=== PATIENT | female | born 1945 | race Caucasian/White ===

== ENCOUNTER → 2016-04-26 | Day surgery (SDC) | payer MEDICARE ==
[~2016-04-26] MED LIST: BUPIVACAINE HCL PF 0.25% 30 ML VIAL ONE; KETOROLAC TROMETHAMINE 30 MG/ML (IVP) VIAL IV PUSH ONE; LACTATED RINGER'S 1000 ML INJ 1,000 ML ONE; MIDAZOLAM HCL 2 MG/2 ML VIAL ONE; NORC7.5T PO; ONDANSETRON HCL 4 MG/2 ML VIAL IV PUSH ONE; PROPOFOL 100 MG/10 ML INJ IV ONE; XARE10TA PO; ceFAZolin 2 GM PREMIX 50 ML ONE
--- NOTE | 2016-05-03 16:05 | TN ---
cc: LESLEE CAICEDO CASSI DATE OF SURGERY: 04/26/2016 DATE OF : 1945 INDICATION The patient is a 70-year-old female who presented to the clinic complaining of pain to the right second toe with deviation of the second toe toward the great toe that she did not remember any particular injury but had an incident while dancing at [facility] which she thought may have caused the injury to occur. She subsequently had significant pain and increasing swelling to the area. She then came in for evaluation and on x-ray was found to have a dislocation of the second metatarsophalangeal joint that was attempted to be relocated in clinic unsuccessfully secondary to it being approximately one month old prior to her visit. She was then scheduled for surgery for open reduction of the dislocation of the right second metatarsophalangeal joint with capsule and tendons balancing possible pinning of the second toe to maintain reduction. She consented to this procedure. DETAILS OF PROCEDURE She was seen in pre-op holding by myself, nursing staff and Anesthesia, where the correct patient, side and site were all confirmed to be correct in the right foot. She was then taken back to the surgical suite, placed in supine position where attention was directed to the right foot. It was prepped and draped in normal sterile fashion followed by attention directed to the dorsal aspect of the second metatarsophalangeal joint. Care was taken to avoid neurovascular structures and dissection was taken down to the dorsal aspect of the second metatarsophalangeal joint capsule. A capsulotomy was performed to enter into the joint followed by release of soft tissues around the joint and the dislocation was found to be reduced. Following this a pin was placed into the distal aspect of the second digit all the way through the second metatarsophalangeal joint in order to achieve and hold reduction. Following this the lateral capsular structures were repaired via a lateral capsulorrhaphy and a medial capsulotomy. Following this attention was directed to the dorsal aspect of the capsule. The deep tissue was closed followed by skin with 3-0 nylon suture after irrigation was performed. A 0.45 K-wire was used to achieve and hold the fixation. This as all confirmed with C-arm imaging prior to closure. Following this a dressing consisting of Xeroform to the dorsal aspect of the foot, 4x4's, Jovan and Manolo bandage was applied to the right foot. A Jurgan ball was placed at the tip of the pin site. The patient was then taken back to PACU with vital signs stable and vascular status intact to the remainder of the right foot. She tolerated the procedure and anesthesia well without complications and will be weightbearing as tolerated in a CAM boot. SHORT OPERATIVE NOTE SURGEON Leslee Caicedo DISPATCH OFFICER Staff PREOPERATIVE DIAGNOSIS Second metatarsophalangeal joint dislocation, right foot. POSTOPERATIVE DIAGNOSIS Second metatarsophalangeal joint dislocation, right foot. PROCEDURE Open reduction of dislocation right second metatarsophalangeal joint with capsule and tendon balancing and pinning using a 0.45 K-wire. PROGNOSIS Two grams of Ancef IV pre-op. ANESTHESIA General endotracheal plus 10 mL of 0.25% Marcaine plain as a local block. ESTIMATED BLOOD LOSS Minimal. COMPLICATIONS None. TOURNIQUET TIME Right ankle at 250 mmHg for 39 minutes. DISPOSITION Weightbearing as tolerated right foot in CAM boot. Follow-up in clinic in one week for dressing change. Leslee ROA/LOUISE /2:45 PM /4:04 PM
== END | disposition home or self-care (01) ==
LOC: ESDC 06:05
PROVIDERS: ATTEND Podiatrist Foot & Ankle Surgery
DX: S93.124A Dislocation of metatarsophalangeal joint of right lesser toe(s), initial encounter (principal)
CPT/HCPCS: 01462; 28636; 73630; 76000; J0690; J1885; J2250; J2405; J3010; J7120

== ENCOUNTER → 2016-06-14 | Day surgery (SDC) | payer MEDICARE ==
[~2016-06-14] MED LIST changes: -KETOROLAC TROMETHAMINE 30 MG/ML (IVP) VIAL IV PUSH ONE; -PROPOFOL 100 MG/10 ML INJ IV ONE; +PROPOFOL 200 MG/20 ML AMP IV ONE; +oxyCODONE/ACETAMINOPHEN 5 MG/325 MG TAB ONE
--- NOTE | 2016-06-17 17:20 | TN ---
cc: ELDON CAICEDO DP DATE OF 1945 DATE OF SURGERY 06/14/2016 HISTORY: the patient is a 71-year-old female who presented to my clinic after having a dislocation for approximately one month of her second digit of the metatarsophalangeal joint. She was in her postoperative course after having the dislocation reduced, a pin placed through the digit and through the second metatarsophalangeal joint area and the lateral aspect of the capsule that was noted to be torn intraoperatively that was repaired in surgery as well. The patient to admit to taking the boot off while she was and all recovering with the pin and thinks that she may have in her sleep knocked the toe, breaking the toe. It was noted in the clinic upon x-ray that the pin was broken at the level of the metatarsophalangeal joint and the toe had recurrent dislocation at the metatarsophalangeal joint as well and after reviewing the x-rays with the patient and the fact that there was a pin remaining within the joint area. I discussed with her that she needed to have that residual pin removed and a revision procedure performed in order to reduce the dislocation and repair and a soft tissue defect of the maybe in the area as well. I discussed with her that with a recurrent dislocation like this it was likely that she had torn more soft tissue of the lateral aspect possibly the plantar aspect of the joint area including the plantar plate as well as the lateral aspect of the capsule and likely been weak and worn after the repair. I also discussed with her that it would be best to decompress the joint to include a Clare osteotomy with the plantar plate repair of the capsule repair to reduce the right second metatarsophalangeal joint dislocation. I discussed the procedure the risks, benefits and potential complications in great detail with the patient. She consented to move forward surgery. The patient was seen in preop holding by myself, nursing staff and Anesthesia where the correct patient side and site were all confirmed be correct in the right foot. The patient was taken to the surgical suite, placed in supine position where the right foot was prepped and draped in normal sterile fashion following time-outs as per facility protocol attention was directed to the dorsal aspect of the second metatarsophalangeal joint where a linear incision was made encompassing the joint then taken down to the medial aspect of the joint where a the residual aspect of the pin was located using C-arm and removal of the residual K-wire was confirmed using C-arm imaging as well. Following this dissection was taken down to the dorsal aspect of the second metatarsophalangeal joint. The extensor tendon was lengthened a capsulotomy was performed and dissection was taken down to the dorsal aspect of second metatarsal head were Clare osteotomy was performed. Following the completion of the osteotomy, the second metatarsal head fragment shifted both proximally and slightly medially and relocated with the digit in that area. This was confirmed with C-arm imaging to be reduced. However, upon proximal translation of the second metatarsal head. It was noted that there was a lateral plantar plate tear, it was a very irregular tear, not [id number] but a transverse tear just to the lateral aspect of the plantar plate which was making the medial structures pull the toe in a medially dislocated fashion. Following the reduction of the deformity the Clare osteotomy was fixated using a 13 mm Arthrex snap off screw as well as an 11 mm Arthrex snap-off screw and reduction was confirmed using C-arm imaging as well. Following this the Arthrex mini Scorpion and micro suture lasso systems were used in order to repair the plantar plate using the technique guide with the system. In addition to this since the lateral aspect of the capsule was noted to be torn as well a dorsal to plantar drill hole was made through the lateral aspect of second metatarsal head and the suture was passed from plantar to dorsal through the lateral aspect of the capsule in order to fixate that at that point as well in order to achieve further stability. The plantar plate was repaired and final reduction of the deformity was confirmed with C-arm imaging. Closure of the deep tissue was achieved using 4-0 Vicryl suture followed by 4-0 nylon suture to the skin in horizontal mattress fashion. 30 mL of 0.25% Marcaine plain was given and local block to the area. Following this a bandage consisting of Xeroform, 4x4s, cast padding and a short posterior splint was applied to the right lower extremity. The patient will be non-weightbearing to the right lower extremity in splint. She was taken to PACU with vital signs stable and vascular status intact to the remainder of the right foot. She tolerated procedure and anesthesia well without complications. The right ankle tourniquet was at 250 mmHg for 95 minutes. SHORT OPERATIVE NOTE: SURGEON: Eldon Caicedo MD. LAV CREWMAN: Staff. PREOPERATIVE DIAGNOSIS: dislocation recurrent right second metatarsophalangeal joint with plantar plate tear and painful hardware. POSTOPERATIVE DIAGNOSIS: Dislocation recurrent right second metatarsophalangeal joint with plantar plate tear and painful hardware. PROCEDURE 1. Removal of hardware right foot. 2. Clare osteotomy with plantar plate repair right second metatarsophalangeal joint. PATHOLOGY: None. PROPHYLAXIS: 2 grams Ancef IV preop. ANESTHESIA General endotracheal anesthesia, plus 30 mL of 0.25% Marcaine plain ESTIMATED BLOOD LOSS Minimal. PATHOLOGY: None. COMPLICATIONS: None. HEMOSTASIS Right ankle tourniquet at 250 mmHg times 95 minutes. DISPOSITION: Non-weightbearing right lower extremity in splint and will follow up in clinic in 1 week for bandage change and will likely be non-weightbearing for an extended period of time to allow soft tissues to heal. Eldon ROA/jaime /3:53 PM /4:07 PM
== END | disposition home or self-care (01) ==
LOC: ESDC 06:13
PROVIDERS: ATTEND Podiatrist Foot & Ankle Surgery
DX: S93.124D Dislocation of metatarsophalangeal joint of right lesser toe(s), subsequent encounter (principal); T84.84XA Pain due to internal orthopedic prosthetic devices, implants and grafts, initial encounter; M24.174 Other articular cartilage disorders, right foot
CPT/HCPCS: 01480; 20680; 28308; 28313; 73620; 76000; C1713; J0690; J2250; J2405; J3010; J7120